=== PATIENT | female | born 1990 | race Caucasian/White ===

== ENCOUNTER 2021-10-15 13:13 | Outpatient (CLI) | payer OTHER ==
[~2021-10-15] VITALS: Ht 175.3 cm; Wt 121.4 kg
[2021-10-15 13:20] VITALS: BP 138/94; PULSE 105; TEMP 98.4
[2021-10-15 14:00] VITALS: BP 120/59; PULSE 90
[2021-10-15] MEDS ORDERED: PRENATAL FORMU1 EAC3 PO (14:15)
[2021-10-15 14:30] VITALS: BP 114/59; PULSE 91
[2021-10-15 14:46] LABS: MEAN CELL VOLUME 77 fl (80.0-100.0); MEAN CORPUSCULAR HGB CONC 32 g/dl (33.0-37.0); MEAN PLATELET VOLUME 9.8 fl (7.4-10.4); PLATELET COUNT 333 K/mm3 (130-400); RED BLOOD COUNT 3.78 M/mm3 (4.10-5.30); REDCELL DISTRIBUTION WIDTH-CV 15.3 % (11.5-14.5)
[2021-10-15 14:53] LABS: HEMATOCRIT 29.2 % (37.0-47.0); HEMOGLOBIN 9.3 g/dl (12.5-16.0); MEAN CORPUSCULAR HEMOGLOBIN 25 pg (27-31)
[2021-10-15 15:00] VITALS: BP 106/58; PULSE 83
[2021-10-15 15:02] LABS: ALBUMIN 2.6 gm/dL (3.5-5.0); ALKALINE PHOSPHATASE 105 U/L (40-150); ANION GAP 7 mmol/L (7-16); AST,SGOT 11 U/L (5-34); BILIRUBIN,TOTAL 0.4 mg/dL (0.2-1.2); BLOOD UREA NITROGEN 6 mg/dL (7-19); CALCIUM 8.5 mg/dL (8.4-10.2); CARBON DIOXIDE 20 mmol/L (22-29); CHLORIDE 107 mmol/L (98-107); CREATININE, serum 0.56 mg/dL (0.57-1.11); GLUCOSE 77 mg/dL (70-99); SODIUM 134 mmol/L (136-145); TOTAL PROTEIN 5.6 gm/dL (6.2-8.1)
[2021-10-15 15:04] LABS: ALANINE AMINOTRANSFERASE < 6 U/L (0-55)
[2021-10-15 15:30] VITALS: BP 110/56; PULSE 77
[2021-10-15 16:00] VITALS: PULSE 78
--- NOTE | 2021-10-15 16:06 | NUR ---
1320 PATIENT HERE FOR COMPLAINTS OF HEADACHE AND HAS TAKEN BLOOD PRESSURE AT HOME AND WAS ELEVATED. EFM ON FHT 155 BABY VERY ACTIVE. NO CONTRACTIONS NOTED BY PATIENT OR ON MONITOR. BP 138/94. DR MOISE AND REVIEWS CHART AND ORDERS LABS AT THIS TIME.
--- NOTE | 2021-10-15 16:12 | NUR ---
1600 DENIES NEEDS AT THIS TIME
--- NOTE | 2021-10-15 16:15 | NUR ---
1600 ALL LABS ARE CALLED TO DR MOISE, T 130 BABY VERY ACTIVE. ORDERS GIVEN TO DISMISS PATIENT TO HOME WOT FOLLOW UP WITH DR GOETZ AT NEXT APPOINTMENT SCHEDULED. VERBAL UNDERSTANDING NOTED. DENIES NEEDS. DISMISSED TO HOME AT 1615
== END 2021-10-15 16:15 | disposition home or self-care (01) ==
LOC: LDRO 13:13
PROVIDERS: Obstetrics & Gynecology
DX: O16.3 Unspecified maternal hypertension, third trimester (principal); Z3A.38 38 weeks gestation of pregnancy

== ENCOUNTER 2021-10-16 16:41 | Outpatient (CLI) | payer OTHER ==
[~2021-10-16] VITALS: Ht 175.3 cm; Wt 120.5 kg
[~2021-10-16 16:41] MED LIST: PRENATAL FORMU1 EAC3 PO
[2021-10-16 16:45] VITALS: BP 135/74; PULSE 131; TEMP 98.4
--- NOTE | 2021-10-16 17:03 | NUR ---
1645 PATIENT HERE FROM HOME WITH COMPLAINTS OF CONTRACTIONS 2-4 MIN AND HAD BEEN UP SINCE MIDNIGHT WITH THEM. EFM ON CONTRACTIONS IRREGULAR 8-10 MIN APART AND PALPATE MILD. SVE /-[address] ALMANZA CALLED AND UPDATED. ORDERS TO MONITOR AND RECHECK AFTER ONE HOUR.
[2021-10-16 17:40] VITALS: BP 135/61; PULSE 98
--- NOTE | 2021-10-16 17:40 | NUR ---
1740 SVE UNCHNAGED. ALL DISCHARGE INSTRUCTIONS GIVEN TO PATIENT WITH VERBAL UNDERSTANDING. DENIES NEEDS. FHT 135 GOOD ACCELERATIONS NOTED
--- NOTE | 2021-10-16 17:51 | NUR ---
1748 PATIENT CALLED ME BACK INTO ROOM, SHE IS VERY UPSET. STATES THIS IS FRUSTRATNG THE MONITOR IS NOT PICKING UP CONTRACTIONS. EXPLAINED TO PATIENT THAT I HAVE PALPATED AND READJUSTED MONITOR AND HAVE NOT PICKED CONTRACIONS UP EVERY 2 MIN. SVE IS UNCHANGED ALSO. PATIENT IS VERY MAD AND STATES I NEED TO HAVE THIS BABY BECAUSE THIS IS VERY DANGEROUS. ALSO STATES THAT SHE WILL NOT BE COMING BACK IN AND THAT IS DANGEROUS WITH HER HISTORY. THIS NURSE OFFERED THE PATIENT TO BE MONITORED FOR ANOTHER HOUR AND TO BE RECHECKED AFTER THAT HOUR AND PATIENT REFUSES AND IS VERY ANGRY. PATIENT WAITING FOR TO COME BACK TO PICK HER UP
--- NOTE | 2021-10-16 18:22 | NUR ---
1809 PATIENT WALKS OUT VERY UPSET
[2021-10-17] MEDS ORDERED: ZOVIRAX400 MG PO (19:54)
== END 2021-10-16 18:10 | disposition home or self-care (01) ==
LOC: LDRO 16:41
DX: O62.9 Abnormality of forces of labor, unspecified (principal); Z3A.38 38 weeks gestation of pregnancy

== ENCOUNTER 2021-10-17 19:13 | Inpatient (IN) | payer OTHER ==
[2021-10-17] VITALS (12 sets, daily range): BP systolic 84–136; BP diastolic 46–97; PULSE 89–144; TEMP 98–98.4
[~2021-10-17] VITALS: Ht 176.5 cm; Wt 121.4 kg
--- NOTE | 2021-10-17 19:20 | NUR ---
1919- PT PRESENTS TO OB UNIT, AMBULATORY, FROM HOME. ESCORTED TO ROOM LDR 3. PT C/O CTX THAT STARTED BECOME MORE INTENSE AROUND 1730 AND CECIL EVERY 3-4 MINUTES. PT REPORTS +FM, +CTX, DENIES ANY LOF OR VB. PT REPORTS THAT SHE IS SCHEDULED FOR A NEXT WEEK. PT HAS A HX OF PRE-TERM DELIVERY AT 36.0 W/ A SHOULDER DYSTOCIA AND LARGE BABY. INSTRUCTIONS GIVEN TO PT. 1927- MONITORS APPLIED TO PT AND VSS WITH THE EXCEPTION OF TACHYCARDIA. 1934- SVE PERFORMED /-2, INTACT. 1937- ROLES CALLED AND REPORT GIVEN. PHYSICIAN EN ROUTE TO HOSPITAL. 1944- ROLES AT BS 1999- PT BEING CONSENTED FOR WITH PROVIDER. 2024- ELECTRIC CLIPPERS USED TO SHAVE PT AND CHG CHILD CARE EDUCATION COORDINATOR USED ON ABDOMEN AND CHEPE CARE PERFORMED. PT'S PRESENT AND AT BS. 2029- #18G IV TO LT WRIST. X1 ATTEMPT AND SUCCESSFUL. LABS DRAWN WITH IV START. DRSG APPLIED. IV STARTED BY KIM ARECHIGA. PT TOLERATED WELL W/O ANY DIFFICULTIES. KARIME TAPIA AT BS. 2041- PT AMBULATED TO OR. ACCOMPANIED BY SPOUSE, DEVON AND RN.
[2021-10-17] MEDS ORDERED: ZOVIRAX400 MG PO (19:54)
[2021-10-17 20:38] LABS: BASO % 0.3 % (0.0-2.0); EOS # 0.1 K/mm3 (0.0-0.7); EOS % 0.4 % (0.0-4.0); GRAN # 9.4 K/mm3 (1.4-6.5); GRAN % 76.3 % (42.2-75.2); LYMPH # 1.9 K/mm3 (1.2-3.4); LYMPH % 15.8 % (20.0-51.0); MEAN CELL VOLUME 74 fl (80.0-100.0); MEAN CORPUSCULAR HGB CONC 33 g/dl (33.0-37.0); MEAN PLATELET VOLUME 9.8 fl (7.4-10.4); MONO # 0.8 K/mm3 (0.1-0.6); MONO % 6.7 % (1.7-9.3); PLATELET COUNT 399 K/mm3 (130-400); RED BLOOD COUNT 4.06 M/mm3 (4.10-5.30); REDCELL DISTRIBUTION WIDTH-CV 15.3 % (11.5-14.5)
[2021-10-17 20:39] LABS: HEMATOCRIT 30.2 % (37.0-47.0); HEMOGLOBIN 9.8 g/dl (12.5-16.0); MEAN CORPUSCULAR HEMOGLOBIN 24 pg (27-31)
--- NOTE | 2021-10-17 21:50 | NUR ---
2149- PT TO PACU. PITOCIN INFUSING TO GRAVITY. 2152- SKIN TO SKIN AND NURSING. 2214- PT NURSING INFANT SKIN TO SKIN. 2219- PACU RECOVERY COMPLETED. PT SHAKING AND BP CUFF READJUSTED AND WILL BE RETAKEN IN PP ROOM. 2229- PT MOVED TO PP ROOM 213 VIA BED. PT HOLDING BABY. ACCOMAPANIED BY RN AND SPOUSE 2245- PT DENIES ANY PAIN OR C/O N/V AT THIS TIME. ICE CHIPS, APPLE JUICE AND SALTINE CRACKERS PROVIDED. PT STILL HOLDING SKIN TO SKIN AND NURSING. POC D/W PT AND SPOUSE. 2345- PT ABLE TO TOLERATE FLUIDS PO AND SNACKS W/O ANY COMPLAINTS. PITOCIN INFUSION COMPLETED AND IV SL. PT DENIES ANY PAIN OR N/V. VSS. NEW CHEPE PAD CHANGED. EDUCATED PT ON APPROPRIATE BLEEDING AFTER DELIVERY AND PAIN MANAGEMENT. 0100- SANDWICH PROVIDED TO PT. PT C/O PAIN. PERCOCET X1 TAB PO GIVEN. CHEPE CARE PERFORMED BY RN. NEW CHEPE PAD AND UNDERPAD CHANGED. LOCHIA LIGHT AND FUNDUS FIRM. PT ABLE TO MOVE LEGS MORE BUT STILL REPORTS FEELING NUMB AND TINGLY. RESENDEZ REMAINING IN PLACE AND DRAINING CLEAR YELLOW, URINE. H20 JUG REFILLED.
[2021-10-18 03:54] VITALS: BP 134/78; PULSE 93; TEMP 97.9
--- NOTE | 2021-10-18 04:35 | NUR ---
0245- PT LYING IN BED HOLDING BABY, NURSING SKIN TO SKIN. 0354- PT HOLDING BABY. IBUPROFEN PO GIVEN. SPOUSE AT BS. VSS. 0405- MAL SCHMITZ'D. PT TOLERATED WELL W/O ANY DIFFICULTIES. 0410- PT UP TO BR. STEADY GAIT. 0415- PT ABLE TO VOID. MESH UNDERWEAR AND CHEPE PAD AND ABDOMINAL BINDER APPLIED. 0420- PT ABLE TO AMBULATE AROUND ROOM WITHOUT ANY ISSUES. POC D/W PT. CALL LIGHT WITHIN REACH. PT DENIES ANY ADDITIONAL NEEDS AT THIS TIME.
[2021-10-18 06:40] LABS: HEMATOCRIT 27.5 % (37.0-47.0); HEMOGLOBIN 8.7 g/dl (12.5-16.0)
[2021-10-18 08:21] VITALS: BP 119/80; PULSE 98; TEMP 98.1
[2021-10-18] MEDS ORDERED: IBU800 M1 PO (10:07)
[2021-10-18] MEDS ORDERED: PERCOCET 325 MG1 TA2 PO (10:07)
--- NOTE | 2021-10-18 10:24 | NUR ---
Intial visit; Parents thanked Adjutant General for offering congratulations and God's blessings for the of their daughter. Adjutant General thanked family for choosing [facility].
[2021-10-18 11:30] VITALS: BP 112/47; PULSE 96; TEMP 97.6
--- NOTE | 2021-10-18 12:00 | NUR ---
CALLED TO PT ROOM, DR. GOETZ REMOVED ABDOMINAL DRESSING AND NOW PT IS CONCERNED WITH BLEEDING ON ONE SIDE OF INCISION. INCISION ASSESSED, EDGES WELL APPROXIMATED, NO REDNESS, DRAINAGE OR SWELLING NOTED. SMALL AMOUNT OF DRIED BLOOD NOTED ON RIGHT SIDE OF INCISION SITE. NO ACTIVE BLEEDING NOTED.
[2021-10-18 16:29] VITALS: BP 128/77; PULSE 98; TEMP 98.6
[2021-10-18 18:30] VITALS: BP 115/74; PULSE 89; TEMP 97.4
--- NOTE | 2021-10-18 18:52 | NUR ---
Report received. Plan of care reviewed. Patient in room, nursing .
[2021-10-19 07:20] VITALS: BP 114/58; PULSE 79; TEMP 97.7
== END 2021-10-19 10:50 | disposition home or self-care (01) | DRG 788 ==
LOC: LDRO 19:13 → LDR 19:25 → LDRO 20:00 → OB 20:09 → LDR 20:09 → OB 10-18 02:44
PROVIDERS: Obstetrics & Gynecology; ADMIT Obstetrics & Gynecology
PROC: 10D00Z1 Extraction of Products of Conception, Low, Open Approach (ICD-10-PCS; principal; 2021-10-17)
DX: O99.344 Other mental disorders complicating childbirth (principal); F31.9 Bipolar disorder, unspecified; O99.214 Obesity complicating childbirth; Z3A.38 38 weeks gestation of pregnancy; Z37.0 Single live birth
CPT/HCPCS: J0171; J0690; J1100; J1885; J2405; J2590; J7120